=== PATIENT | female | born 1995 ===

== ENCOUNTER 2018-11-12 07:16 | Outpatient (CLI) | payer MEDICAID ==
--- NOTE | 2018-11-12 09:45 | ULT ---
EXAM: Pelvic ultrasound HISTORY: Pelvic pain COMPARISON: None TECHNIQUE: Multiple grayscale and color Doppler images were obtained in a transabdominal and transvag inal pelvic ultrasound. Spectral analysis of the Doppler waveforms of the ovaries were performed. FINDINGS: CERVIX: Complex hypoechoic to anechoic region in the cervix may represent a cluster of nabothian cyst s. UTERUS: Normal in size without focal abnormality. ENDOMETRIAL STRIPE: 10 mm. No free fluid is seen in the pelvis. RIGHT OVARY: Normal flow without focal mass. LEFT OVARY: Normal flow without focal mass. IMPRESSION: Nabothian cysts; otherwise unremarkable exam.
== END 2018-11-12 07:17 | disposition home or self-care (01) ==
LOC: BICULT 07:16
PROVIDERS: ATTEND Advanced Practice Midwife
DX: R10.2 Pelvic and perineal pain (principal); N88.8 Other specified noninflammatory disorders of cervix uteri
CPT/HCPCS: 76856